=== PATIENT | female | born 1990 | race Caucasian/White ===

== ENCOUNTER 2016-05-13 20:30 | Emergency (ER) | payer OTHER ==
[~2016-05-13] VITALS: Ht 172.7 cm; Wt 55.0 kg
[2016-05-13 20:32] VITALS: BP 115/80; PULSE 98; RESP 16; TEMP 98.1; O2SAT 98
[2016-05-13] MEDS ORDERED: BACT800T5 PO (20:43)
[2016-05-13] MEDS ORDERED: CEPH-460 PO (20:43)
[2016-05-13] MEDS ORDERED: SULFAMETHOXAZOLE-TRIMETHOPRIM DS 800-160 MG TAB PO ONE (20:45)
[2016-05-13] MEDS ORDERED: CEPHALEXIN MONOHYDRATE 500 MG CAP PO ONE (20:45)
--- NOTE | 2016-05-13 20:49 | PD ---
HPI Chief Complaint: Skin Problem Time Seen by Provider: 20:46 Travel History International Travel<30 days: No Contact w/Intl Traveler<30days: No Traveled to known affect area: No History of Present Illness HPI 25-year-old white female presents to emergency Department with complaints of a developing abscess to her left inner thigh. She states that she had a small pimple she felt from shaving on Saturday. She had picked and squeezed the area. There has become increasingly painful and red. She just got into town today from [place]. They drove all day. She has had a history of a abscess in her left axilla in the past. This feels similar. She denies any fever chills. No drainage. It is [id number] no alleviating factor. Patient is breast- feeding. PFSH Past Medical History Narrative Medical Left axilla abscess Tetanus Vaccination: < 5 Years ?: Not Past Surgical History Surgical History: No Previous Surgery Social History Alcohol Use: No Tobacco Use: No Allergies-Medications (Allergen,Severity, Reaction): Coded Allergies: No Known Allergies (Unverified , 05/13/16) Reported Meds & Prescriptions Reported Meds & Active Scripts Active Keflex (Cephalexin) 500 Mg Cap 500 Mg PO Q6H Bactrim DS (Sulfamethoxazole-Trimethoprim) 800-160 Mg Tab 1 Tab PO BID Review of Systems Except as stated in HPI: all other systems reviewed are Neg Physical Exam Narrative GENERAL: This is a well-nourished, well-developed patient, in no apparent distress. SKIN: Patient has a 1.5 x 1.5 cm tender indurated area in the left inner thigh. There is a 3 x 3 area of surrounding erythema and warmth. Tender to touch. No pointing or fluctuance.. Warm and dry. HEAD: Atraumatic. Normocephalic. EYES: PERRL, EOMI, no discharge or injection. No scleral icterus. EARS: Clear NOSE: Nasal turbinates appear normal. THROAT: Mucosa pink and moist. Airway patent. NECK: Trachea midline. supple, moves head freely. LUNGS: Clear to auscultation. CV: Regular in rhythm. ABDOMEN: Soft nontender. EXT: No clubbing cyanosis or edema. Data Data Last Documented VS Vital Signs Date Time Temp Pulse Resp B/P Pulse Ox O2 Delivery O2 Flow Rate FiO2 05/13/16 20:32 98.1 98 16 115/80 98 Orders Cephalexin (Keflex) (05/13/16 20:45) Sulfamet-Trimeth Ds 800-160 Mg (Bactrim (05/13/16 20:45) MDM Medical Decision Making Medical Screen Exam Complete: Yes Emergency Medical Condition: Yes Medical Record Reviewed: Yes Differential Diagnosis MDM: High Differential diagnoses: Abscess, folliculitis, cellulitis, lymphangitis, abrasion, contact dermatitis Narrative Course Patient has a developing abscess to the left inner thigh. At this time no IND is required. Patient given Keflex 500 and Septra DS by mouth. Diagnosis Primary Impression: left inner thigh abscess Patient Instructions: General Instructions Additional Instructions: Rest. Elevation. keep clean and dry. Warm compresses Daily wound care with soap, water and Neosporin. Three Advil every 6 hours. Keflex and Bactrim DS.. Follow-up with a primary care doctor in one week. Return to the ER for any problems. Med/Other Pt SpecificInfo: Prescription(s) given, Wound Care Scripts Cephalexin (Keflex)500 Mg [id number] Mg PO Q6H #28 CAP Prov:Zoe Stahl MD 05/13/16 Sulfamethoxazole-Trimethoprim (Bactrim DS)800-160 Mg Tab1 Tab PO BID #14 TAB Prov:Zoe Stahl MD 05/13/16 Disposition: 01 DISCHARGE HOME Condition: Stable Alonso Carias May 13, 2016 20:49
== END 2016-05-13 21:09 | disposition home or self-care (01) ==
LOC: NED 20:30 → NEPB 21:09
DX: L02.416 Cutaneous abscess of left lower limb (principal)
CPT/HCPCS: 99282